=== PATIENT | female | born 1975 | race Caucasian/White ===

== ENCOUNTER → 2024-12-21 15:22 | Outpatient (REF) | payer OTHER, SELFPAY ==
--- OUTSIDE RECORDS SUMMARY | 2024-12-21 18:09 | XMS_ITS | Encounter Summary ---
Author Organization [facility] Address [address] [place] [address] Phone Care Team Providers Care Mortgage Assistant Name Role Phone Shell Vasquez APRN, CNP Primary Care P rovider Reason for Visit * Reason Comments Medication Refill Encounter Details Date Type Department Care Team (Late st Contact Info) Description 11/11/2024 Refill [facility] - Primary Care - [place] [address] [place] [address] Shell Vasquez APRN, CNP [address] [place] [address] Medication Refill Social History Tobacco Use Types Packs/Day Years Used Date Smoking Tobacco: Every Day Cigarettes Smokeless Tobacco: Never Alcohol Use Standard Drinks/Week Comments Not Currently 0 (1 standard drink = 0.6 oz pur e alcohol) [facility] Utilities Answer Date Recorded In the past 12 months has [employer], gas, oil, or water company threatened to shut off services in your home? No 11/10/2024 Social Connection and Isolat ion Panel [NHANES] Answer Date Recorded In a typical week, how many times do you talk on the phone with family, friends, or neighbors? More than three times a week 11/10/2024 How often do you get togethe r with friends or relatives? Twice a week 11/10/2024 How often do you attend chur ch or pentecostalism services? Never 11/10/2024 Do you belong to any clubs o r organizations such as scientologist groups, unions, fraternal or athletic groups, or school groups? No 11/10/2024 How often do you attend meet ings of the clubs or organizations you belong to? Patient declined 11/10/2024 Are you , , di vorced, , never , or living with a partner? 11/10/2024 AUDIT-C Answer Date Recorded Q1: How often do you have a drink containing alcohol? Never 11/10/2024 Q2: How many drinks containi ng alcohol do you have on a typical day when you are drinking? Patient does not drink Q3: How often do you have si x or more drinks on one occasion? Never 11/10/2024 Overall Financial Resource Strain (CARDIA) Answe r Date Recorded How hard is it for you to pa y for the very basics like food, housing, medical care, and heating? Patient declined 11/10/2024 [facility] of Occupat ional Health - Occupational Stress Questionnaire Answer Date Recorded Do you feel stress - tense, restless, nervous, or anxious, or unable to sleep at night because your mind is troubled all the time - these days? Patient declined 11/10/2024 Exercise Vital Sign Answer Date Recorde d On average, how many days pe r week do you engage in moderate to strenuous exercise (like a brisk walk)? 0 days 11/10/2024 On average, how many minutes do you engage in exercise at this level? 0 min 11/10/2024 Hunger Vital Sign Answer Date Recorded Within the past 12 months, y ou worried that your food would run out before you got the money to buy more. Never true 11/10/19 25 Within the past 12 months, t he food you bought just didn't last and you didn't have money to get more. Never true 11/10/2024 PRAPARE - Transportation Answer Date Re corded In the past 12 months, has l ack of transportation kept you from medical appointments or from getting medications? No 01/2025 In the past 12 months, has l ack of transportation kept you from meetings, work, or from getting things needed for daily living? No 11/10/2024 Housing Stability Vital Sign Answer Willam e Recorded In the last 12 months, was t here a time when you were not able to pay the mortgage or rent on time? No 11/10/2024 In the past 12 months, how m any times have you moved where you were living? 1 11/10/2024 At any time in the past 12 m [facility], were you homeless or living in a penitentiary (including now)? 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 file documented as of this encounter Miscellaneous Notes * Telephone Encounter - Shell Vasquez APRN, CNP - 11/11/2024 9:51 AM CST dupe ND RUNNER * Telephone Encounter - Claribel Hughes RN - 11/11/2024 9:35 AM ERRAND RUNNER Medication failed the protocol, provider to review and approve the medication order if appropriate. Requested Prescriptions Pending Prescriptions Disp Refills zolpidem (AMBIEN) 10 MG Tablet [Pharmacy Med Name: ZOLPIDEM 10MG TABLETS] 30 Tablet Sig: Take 1 Tablet by mouth nightly as needed for Sleep. Not Delegated - Off Protocol Failed - 11/11/2024 9:35 AM Failed - This refill cannot be delegated Passed - Visit with relevant provider in past 12 months or upcoming 90 days Recent Visits Date Type Provider Dept 07/16/24 Office Visit Shell Vasquez APRN, CNP [facility] Showing recent visits within past 365 days and meeting all other requirements Future Appointments Date Type Provider Dept 01/14/25 Appointment Shell Vasquez APRN, GLAZE MAKER [facility] Showing future appointments within next 90 days and meeting all other requirements ND RUNNER documented in this encounter Plan of Treatment Upcoming Encounters Date Type Department Care Team (Late st Contact Info) Description 01/14/2025 8:00 AM CDT Office Visit [facility] - Primary Care - [place] [address] [address] Shell Vasquez APRN, FROY [address] [place] [address] documented as of this encounter Visit Diagnoses Diagnosis Chronic insomnia Insomnia, unspecified documented in this encounter Care Teams Mortgage Assistant Relationship Specialty Start Date End Date Shell Vasquez APRN, FROY [address] [place] [address] PCP - General Advanced Practice Nurse 07/16/24 documented as of this encounter
--- OUTSIDE RECORDS SUMMARY | 2024-12-21 18:09 | XMS_ITS | Clinical Summary ---
Author Organization [facility] Address [address] [place] [phone] Phone Care Team Providers Care Contaminated Land Consultant Name Role Phone Fifi King MD Primary Care Provider Allergies Active Allergy Reactions Criticality Noted Date Comments Amoxicillin-Pot Clavulanate Nausea and Vomiting Low 03/29/2018 Ciprofloxacin Anaphylaxis High 03/10/2018 Clarithromycin Shortness of Breath/Wheezing,Nausea and Vomiting High 03/10/2018 Conjugated Estrogens Abdominal Pain Low 07/29/2020 Levofloxacin Shortness of Breath/Wheezing High 03/10/2018 Oxycodone Nausea and Vomiting,Dizziness Low 07/29/2020 Penicillins Anaphylaxis High 03/10/2018 Medications zolpidem (AMBIEN) 10 mg tablet Take 10 mg by mouth nightly as needed for Insomnia. Active conjugated estrogens (PREMARIN) 0.625 mg/gram vaginal cream Insert 0.5 Grams vaginally every Saturday, Saturday, and Saturday at bedtime //START AFTER VAGINAL PACKING IS REMOVED. 30 Gram 11 03/29/2018 11:59 AM CDT 8 Active docusate sodium (COLACE) 100 mg capsule Take 1 Capsule (100 mg) by mouth 2 times daily. BEGIN AFTER SURGERY. 60 Capsule 5 03/29/2018 11:59 AM CDT 8 Active sulfamethoxazol e-trimethoprim (BACTRIM DS) 800-160 mg tablet Take 1 Tablet by mouth every 12 hours. START AFTER SURGERY. 14 Tablet 03/29/2018 11:59 AM CDT 8 Active pantoprazole (PROTONIX) 40 mg Tablet, Delayed Release (E.C.) Take 40 mg by mouth daily. gerd Active ergocalciferol (VITAMIN D2) 50,000 unit capsule Take 50,000 Units by mouth. supp Active cyanocobalamin 1,000 mcg Tablet Take 1,000 mcg by mouth daily. With folic acid included. supp Active ibuprofen (MOTRIN) 200 mg tablet Take 200 mg by mouth every 6 hours as needed for Pain, Mild. H/A Active ALPRAZolam (XANAX) 0.25 mg tablet Take 0.25 mg by mouth nightly as needed for Anxiety. anxiety Active oxyCODONE (ROXICODONE) 5 mg tabletIndicatio ns:Status post surgery Take 1 Tablet (5 mg) by mouth every 4 hours as needed for Pain, Break-Through. Max Daily Amount: 30 mg 27 Tablet 08/17/2020 11:21 AM STAFF EDITOR 0 Active Active Problems Problem Noted Date Diagnosed Date Uterovaginal prolapse 08/16/2020 Status post surgery 03/28/2018 Social History Tobacco Use Types Packs/Day Years Used Date Smoking Tobacco: Every Day Cigarettes 1.5 29 Smokeless Tobacco: Never Tobacco Cessation:Ready to Q uit: No; Counseling Given: Yes Alcohol Use Standard Drinks/Week Comments No 0 (1 standard drink = 0.6 oz pur e alcohol) Comments No Sex and Gender Information Value Date Recorded Sex Assigned at Not on file Legal Sex Female 4:13 PM CDT Gender Identity Not on file Sexual Orientation Not on file Last Filed Vital Signs Vital Sign Reading Time Taken Comments Blood Pressure 123/65 08/17/2020 8:15 AM STAFF EDITOR Pulse 65 08/17/2020 8:15 AM STAFF EDITOR Temperature 36.8 C (98.2 F) 08/17/2020 8:15 AM STAFF EDITOR Respiratory Rate 16 08/17/2020 8:15 AM STAFF EDITOR Oxygen Saturation 97% 08/17/2020 8:15 AM STAFF EDITOR Inhaled Oxygen Concentration - - Weight 96.2 kg (212 lb) 08/16/2020 8:14 AM STAFF EDITOR Height 165.1 cm (5' 5 ) 08/16/2020 8:14 AM STAFF EDITOR Body Mass Index 35.28 08/16/2020 8:14 AM STAFF EDITOR Plan of Treatment Health Maintenance Due Date Last Done Comments DTAP/TDAP/TD VACCINES (1 - Tdap) 1992 HEPATITIS B VACCINES (1 of 3 - 19+ 3-dose series) 08/07 CERVICAL CANCER SCREENING 2003 BREAST CANCER SCREENING 2013 COLORECTAL SCREENING 2018 Colorectal Cancer Screening 2018 FIT-DNA Q 3 years 2018 FIT/FOBT Q 1 year 2018 Flex Sig/CT Colonography Q 5 years 2018 ZOSTER VACCINE (1 of 2) 2023 INFLUENZA VACCINE (#1) 2024 Medical Devices Implanted Type Area Machine Technician Device Identifier Shelf Expiration Date Model / Serial / Lot Sling Desara System [id number] - [id number] Implanted:Qty: 1 on 03/28/2018 by Avni Soto MD at [facility] Sling N/A: Urinary Bladder [employer] 09/17/2022 [id number] / / [id number] Description:Actual Implant S ite: Urethra. Paraguard Description:uterine implant Insurance RX [employer] Commercial BCBS BLUE PREFERRED Advance Directives For more information, please contact: [phone] * Full Code (Latest Code Status on File) Date Activated Date Inactivated Comments 08/16/2020 8:10 AM 08/17/2020 2:07 PM * Full Code Date Activated Date Inactivated Comments 03/28/2018 5:38 AM 03/29/2018 2:27 PM Care Teams Contaminated Land Consultant Relationship Specialty Start Date End Date Fifi King MD [address] [place] [phone] PCP - General Family Practice 07/29/20
--- OUTSIDE RECORDS SUMMARY | 2024-12-21 18:09 | XMS_ITS | Clinical Summary ---
Author Organization [facility] Address [address] [place] [address] Phone Care Team Providers Care Operations Forester Name Role Phone Shell Vasquez APRN, FROY Primary Care P rovider Allergies Active Allergy Reactions Criticality Noted Date Comments Amoxicillin-Pot Clavulanate Nausea,Anaphylaxis Low 03/29/2018 Clarithromycin Anaphylaxis High 07/07/2024 Ciprofloxacin Anaphylaxis High 07/07/2024 Levofloxacin Anaphylaxis High 07/07/2024 Oxycodone Rash,Itching High 07/07/2024 Penicillins Anaphylaxis High 07/07/2024 Medications Spiriva Respimat 1.25 MCG/ACT Aerosol Solution INHALE 2 PUFFS BY MOUTH DAILY 4 Active Klor-Con 20 MEQ Pack 4 Active pantoprazole (PROTONIX) 40 MG Tablet Delayed Response Take 40 mg by mouth 2 times daily. 4 Active ondansetron (ZOFRAN-ODT) 4 MG TABLET DISPERSIBLE DISSOLVE 1 TABLET BY MOUTH EVERY 6 HOURS NEEDED 4 Active nystatin 793895 UNIT/GM Powder APPLY TOPICALLY TWICE DAILY 4 Active hydrocortisone 2.5 % Cream APPLY EXTERNALLY TO THE AFFECTED AREA TWICE DAILY NEEDED 4 Active hydroCHLOROthia zide 25 MG Tablet Take 25 mg by mouth daily. 4 Active ALPRAZolam (XANAX) 0.5 MG Tablet Take 0.5 mg by mouth 3 times daily. 4 Active albuterol 108 (90 Base) MCG/ACT Aerosol Solution Albuterol Sulfate HFA 108 (90 Base) MCG/ACT Inhalation Aerosol Solution QTY: 8.5 gram Days: 30 Refills: 3 Written: 01/18/24 Patient Instructions: 2 puff every 4 to 6 hours as needed 4 Active EPINEPHrine (EPIPEN IJ) by Injection route. Active ergocalciferol (VITAMIN D) 27680 UNIT Capsule Take 1 Capsule by mouth once a week. 12 Capsule 1 4 Active zolpidem (AMBIEN) 10 MG TabletIndicatio ns:Chronic insomnia Take 1 Tablet by mouth nightly as needed for Sleep. 30 Tablet 5 Active zolpidem (AMBIEN) 10 MG TabletIndicatio ns:Chronic insomnia Take 1 Tablet by mouth nightly as needed for Sleep. 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 05/02/2021 Chronic insomnia 05/02/2021 Mild chronic obstructive pulmonary disease 07/08 Encounters Date Type Department Care Team Description 12/15/2024 MyChart RX Renewal [facility] - [address] [place] [phone] Shell Vasquez APRN, FROY Medication Renewal Declined 12/15/2024 MyChart RX Renewal [facility] - [address] [place] [address] Shell Vasquez APRN, FROY Medication Renewal Reviewed 11/11/2024 Refill [facility] - [address] [place] [address] Shell Vasquez APRN, FROY Medication Refill 11/11/2024 Refill [facility] - [address] [place] [address] Shell Vasquez APRN, CNP Medication Refill 11/11/2024 Refill [facility] - [place] [address] [place] [address] Shell Vasquez APRN, CNP Medication Refill 11/11/2024 MyChart RX Renewal [facility] - [place] [address] [place] [address] Shell Vasquez APRN, CNP Medication Renewal Reviewed 11/10/2024 Travel 10/12/2024 MyChart RX Renewal [place] [address] [facility] [place] [address] Shell Vasquez APRN, CNP Medication Renewal Declined 10/12/2024 Refill [facility] [place] [address] [facility] [place] [address] Shell Vasquez APRN, CNP Medication Refill from Last 3 Months Immunizations Immunization Administration Dates Next Due TDAP Vaccine 09/11/2017 Family History Medical History Relation Name Comments Liver Disease Brother fatty liver Hypertension Father Congestive Heart Failure Mother Heart Attack Mother Hypertension Mother Rheumatoid Arthritis Mother Thyroid Disease Sister 1 Breast Cancer Sister 2 Cancer Sister 2 thyroid Diabetes Sister 2 Relation Name Status Comments Brother Alive Father Alive Mother Alive Sister 1 Alive Sister 2 Alive Social History Tobacco Use Types Packs/Day Years Used Date Smoking Tobacco: Every Day Cigarettes Smokeless Tobacco: Never Tobacco Cessation:Ready to Q uit: No; Counseling Given: No Alcohol Use Standard Drinks/Week Comments Not Currently 0 (1 standard drink = 0.6 oz pur e alcohol) [facility] Utilities Answer Date Recorded In the past 12 months has [employer], gas, oil, or water [employer] [place] threatened to shut off services in your [...] often do you attend chur ch or worship services? Never 11/10/2024 Do you belong to any clubs o r organizations such as congregational groups, unions, fraternal or athletic groups, or [...] medical care, and heating? Patient declined 11/10/2024 [facility] of Occupat ional Health - Occupational Stress [...] any time in the past 12 m [facility], were you homeless or living in a fdc (including now)? 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 file Last Filed Vital Signs Vital Sign Reading Time Taken Comments Blood Pressure 120/82 07/16/2024 1:30 PM CDT Pulse 78 07/16/2024 1:30 PM CDT Temperature 36.6 C (97.8 F) 07/16/2024 1:30 PM CDT Respiratory Rate 20 07/16/2024 1:30 PM CDT Oxygen Saturation 97% 07/16/2024 1:30 PM CDT Inhaled Oxygen Concentration - - Weight 99.8 kg (220 lb) 07/16/2024 1:30 PM CDT Height 152.4 cm (5') 07/16/2024 1:30 PM CDT Body Mass Index 42.97 07/16/2024 1:30 PM CDT Plan of Treatment Upcoming Encounters Date Type Department Care Team (Late st Contact Info) Description 01/14/2025 8:00 AM CDT Office Visit [facility] - Primary Care - [place] [address] [place] [address] Shell Vasquez APRN, CLINICAL ATHLETIC INSTRUCTOR [address] [place] [address] Health Maintenance Due Date Last Done Comments Hepatitis C Virus (HCV) Screening 1973 Pneumococcal Immunization (50+ years) (1 of 2 - PCV) 1992 Colonoscopy 2018 Colorectal Cancer Screening 2018 Cologuard 2023 Immunochemical Fecal Occult Blood 2023 Zoster Immunization (1 of 2) 2023 Influenza Immunization (#1) 2024 SARS-COV-2 Immunization ( season) 2024 07/18/2022, 12/12/2021, 11/11/2020, Additional history exists Mammogram 08/11/2025 08/11/2024 Td Immunization Every 10 Years (Adults With 1 Tdap) 09/11/2027 09/11/2017 Respiratory Syncytial Virus (RSV) Immunization (Adult) (1 - 1-dose 75+ series) 2048 TdaP Immunization Discontinued 09/11/2017 Pap Smear Discontinued 03/03/2020 Cervical Cancer Screening (CCS) Discontinued HPV/Cotest Discontinued 01/23/2024 Hepatitis B Immunization Discontinued Meningococcal Immunization (ACWY) Aged Out No longer eligible based on patient's age to complete this topic Rotavirus Immunization Aged Out No lo nger eligible based on patient's age to complete this topic Procedures Procedure Name Priority Date/Time Associated Diagnosis Comments MAMMOGRAM BILATERAL GENERIC 08/11/2024 12:00 AM SUPERVISOR FEED HOUSE HUMAN PAPILLOMA VIRUS (HPV) 01/23/2024 12:00 AM CDT PATHOLOGY CYTOLOGY NURSERY NURSE 03/03/2020 12:00 AM CDT from Last 3 Months or Most Recently Relevant to Health Maintenance Results * MAMMOGRAM BILATERAL MISCELLANEOUS (08/11/2024 12:00 AM SUPERVISOR FEED HOUSE) 08/11/2024 us Provider Scan IMG MAMMO ORDERABLES Final Resul t SCAN * HUMAN PAPILLOMA VIRUS (HPV) (01/23/2024 12:00 AM CDT) 01/23/2024 us Provider Scan LAB SEND OUTS Final Result SCAN * PATHOLOGY CYTOLOGY NURSERY NURSE (03/03/2020 12:00 AM CDT) 03/03/2020 us Provider Scan PATHOLOGY/CYTOLOGY ORDERABLES Fi nal Result Performing Organization Address City/[facility]/ZIP Co de Phone Number [facility] from Last 3 Months or Most Recently Relevant to Health Maintenance Insurance [employer] reQRdos Care Teams Operations Forester Relationship Specialty Start Date End Date Shell Vasquez, BARREL LOADER, CLINICAL ATHLETIC INSTRUCTOR [address] [place] [address] PCP - General Advanced Practice Nurse 07/16/24
--- OUTSIDE RECORDS SUMMARY | 2024-12-21 18:10 | XMS_ITS | Encounter Summary ---
Author Organization [facility] Address [address] [place] [address] Phone Care Team Providers Care Iron Cutter Name Role Phone Shell Vasquez APRN, CNP Primary Care P rovider Reason for Visit * Reason Comments Medication Refill Encounter Details Date Type Department Care Team (Late st Contact Info) Description 10/12/2024 Refill [facility] Primary Care - [place] [address] [place] [address] Shell Vasquez APRN, CNP [address] [place] [address] Medication Refill Social History Tobacco Use Types Packs/Day Years Used Date Smoking Tobacco: Every Day Cigarettes Smokeless Tobacco: Never Alcohol Use Standard Drinks/Week Comments Not Currently 0 (1 standard drink = 0.6 oz pur e alcohol) Sexually Active Control Partners Comments Yes Comments [...] encounter Miscellaneous Notes * Telephone Encounter - Suki Curiel, RN - 10/13/2024 7:45 AM CST Duplicate request. LE SCHOOL MUSIC TEACHER documented in this encounter Plan of Treatment Upcoming Encounters Date Type Department Care Team (Late st Contact Info) Description 01/14/2025 8:00 AM CDT Office Visit [facility] - Primary Care - [place] [address] [place] [address] Shell Vasquez APRN, CLASSIFIER [address] [place] [address] documented as of this encounter Visit Diagnoses Diagnosis Chronic insomnia Insomnia, unspecified documented in this encounter Care Teams Iron Cutter Relationship Specialty Start Date End Date Shell Vasquez APRN, CLASSIFIER [address] [place] [address] PCP - General Advanced Practice Nurse 07/16/24 documented as of this encounter
--- OUTSIDE RECORDS SUMMARY | 2024-12-21 18:10 | XMS_ITS | Continuity of Care Document ---
Author Organization [facility] Address [address] [place] [address] Phone Care Team Providers Care Brake Rider Name Role Phone iAde Alonso Unavailable Unavailable Medications Medication Instructions Dosage Effective Dates (start - stop) Status Comments Tamiflu 75 mg capsule take 1 capsule by oral route every day 75 MG - Active Advance Directives Directive Yes / No Effective Date File Name No Information Encounters Encounter Description Practice Location Reason(s) For Visit Diagnoses Date Provider Providers [facility] [address] [place] [address], [facility], tel:[phone] [place] No Information Celeste Noble. [facility] [place], [place], [facility], . tel: [phone] Family History Family Member Type Diagnosis Age At Onset No Information Payers Payer name Insurance type Covered republican ID Authoriza tion(s) No Information Social History Type Description Quantity Date Captured Comments Sex Female Smoking Status No Information Chief Complaint And Reason For Visit No Information Reason For Referral Reason For Referral No Information History Of Present Illness Encounter Date Complaint History Of Prese nt Illness No Information Functional Status Date Functional Assessmen t No Information Instructions Date Instruction Additional Infor mation No Information Assessments Type Assessment Date No Information Patient Care Teams Name Effective Dates (start - stop) Status Members No Information
== END ==
LOC: ANHLAB 15:22
PROVIDERS: Visit Provider Plastic Surgery
DX: C44.92 Squamous cell carcinoma of skin, unspecified (principal)
CPT/HCPCS: 88305